=== PATIENT | female | born 1965 | race African-American/Black ===

== ENCOUNTER 2024-01-15 09:19 | Outpatient (RCR) | payer OTHER, SELFPAY ==
[2024-01-15 09:40] VITALS: BMI 49.1
== END 2024-04-14 23:59 | disposition home or self-care (01) ==
LOC: ANHDMC 09:19
PROVIDERS: Visit Provider Internal Medicine Endocrinology, Diabetes & Metabolism
DX: E66.9 Obesity, unspecified (principal); Z68.43 Body mass index [BMI] 50.0-59.9, adult; E03.9 Hypothyroidism, unspecified; Z71.3 Dietary counseling and surveillance
CPT/HCPCS: 97802